=== PATIENT | female | born 1965 | race Caucasian/White ===

== ENCOUNTER → 2018-07-16 | Outpatient (CLI) | payer OTHER ==
--- NOTE | 2018-07-16 12:00 | MM ---
Reason for exam: screening (asymptomatic). Baseline mammogram. History: Patient is postmenopausal. Took hormonal contraceptives for 3 years. Took estrogen for 9 years. Physical Findings: Nurse did not find any significant physical abnormalities on exam. MG Screening Mammo w CAD Bilateral CC and MLO view(s) were taken. The breast tissue is heterogeneously dense. This may lower the sensitivity of mammography. No suspicious calcifications or masses. No significant new findings when compared with previous films. These results were verbally communicated with the patient and result sheet given to the patient on 07/16/18. ASSESSMENT: Negative, BI-RAD 1 RECOMMENDATION: Routine screening mammogram of both breasts in 1 year. Manage patient on a clinical basis.
== END | disposition home or self-care (01) ==
LOC: RADMAMWWP 10:58
PROVIDERS: ATTEND Family Medicine
DX: Z12.31 Encounter for screening mammogram for malignant neoplasm of breast (principal)
CPT/HCPCS: 77067

== ENCOUNTER → 2021-08-14 | Outpatient (CLI) | payer OTHER ==
[~2021-08-14] MED LIST: REGADENOSON 0.4 MG/5 ML SYRINGE IV PRN
--- NOTE | 2021-08-14 11:45 | NM ---
EXAMINATION TYPE: NM stress lexiscan cardiolite DATE OF EXAM: 08/14/2021 COMPARISON: NONE HISTORY: Chest pain, R07.89 TECHNIQUE: After the intravenous administration of 8.9 mCi Tc 99m Sestamibi - Cardiolite resting SPE CT images acquired 45 minutes post injection. The patient received 0.4mg Lexiscan, 24.9 mCi Tc 99m Sestamibi - Stress images obtained [address] injection FINDINGS: Review of stress and rest SPECT images demonstrates decreased uptake along the inferior wall the left ventricle on stress and rest images towards the apex. There is gut activity identified on the stres s images. Gated analysis shows normal wall motion with an estimated left ventricular ejection fractio n of 61 %. 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 No scintigraphic evidence for pharmacologically induced reversible ischemia.
--- NOTE | 2021-08-14 13:54 | EST ---
EXERCISE STRESS AGE: 56 SEX: F HT: 5'6" WT: 127 lbs. PROTOCOL: Lexiscan STAGE: NA DURATION OF EXERCISE: 5 minutes HEART RATE REST: 62 BLOOD PRESSURE REST: 156/82 MAXIMUM HEART RATE ACHIEVED: 94 MAXIMUM BLOOD PRESSURE: 175/85 85% MPHR: 139 100% MPHR: 164 METS: NA INDICATIONS: Chest pain CLINICAL INFORMATION: Baseline EKG revealed normal sinus rhythm without significant ST-T changes. Patient was administered Lexiscan as per protocol. Heart rate went up from 62 to 88 beats per minute. Blood pressure changed from 156/80 to 142/83. Patient was asymptomatic. EKG was unremarkable. By EKG criteria, this is an unremarkable Lexiscan stress test. The nuclear scan results will be reported by the radiologist. MMJUANL / RUBENN: [id number] /
== END | disposition home or self-care (01) ==
LOC: RADNMMAIN 07:57
PROVIDERS: ATTEND Family Medicine
DX: R07.89 Other chest pain (principal)
CPT/HCPCS: 93017; 78452; A9500; J2785

== ENCOUNTER → 2021-10-11 | Outpatient (CLI) | payer OTHER ==
--- NOTE | 2021-10-11 14:18 | MM ---
Reason for exam: additional evaluation requested from prior study. Last mammogram was performed 3 years and 3 months ago. History: Patient is postmenopausal. Took hormonal contraceptives for 3 years. Took estrogen for 10 years beginning at age 26. Physical Findings: A clinical breast exam by your physician is recommended on an annual basis and results should be correlated with mammographic findings. MG Diagnostic Mammo w CAD NATE Bilateral CC, MLO, and XCCL view(s) were taken. Prior study comparison: July 16, 2018, bilateral MG screening mammo w CAD. There are scattered fibroglandular densities. There is no discrete abnormality. Results were given to the patient verbally at the time of the exam. ASSESSMENT: Incomplete: need additional imaging evaluation, BI-RAD 0 RECOMMENDATION: Ultrasound of both breasts. (axilla, palpable abnormality by doctor)
--- NOTE | 2021-10-11 14:20 | USB ---
Reason for exam: additional evaluation requested from abnormal screening. History: Patient is postmenopausal. Took hormonal contraceptives for 3 years. Took estrogen for 10 years beginning at age 26. US Breast Limited BILAT Right limited breast ultrasound including focal area of concern, retroareolar and axilla demonstrates a 2.3 x 1.1 x 1.2cm lymph node at the axilla, minimally enlarged but benign morphology noted. Left limited breast ultrasound including focal area of concern, retroareolar and axilla demonstrates a 1.7 x 0.8 x 0.8cm lymph node at the axilla, prominent. Results were given to the patient verbally at the time of the exam. ASSESSMENT: Benign, BI-RAD 2 RECOMMENDATION: Routine screening mammogram of both breasts in 1 year. Manage patient on a clinical basis.
== END | disposition home or self-care (01) ==
LOC: RADMAMWWP 12:59
PROVIDERS: ATTEND Family Medicine
DX: R22.2 Localized swelling, mass and lump, trunk (principal); Z78.0 Asymptomatic menopausal state
CPT/HCPCS: 77066